=== PATIENT | female | born 1995 | race Caucasian/White ===

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

== ENCOUNTER 2017-04-19 20:55 | Emergency (ER) | payer OTHER ==
[~2017-04-19] VITALS: Ht 149.9 cm; Wt 65.5 kg
[2017-04-19 20:55] VITALS: BP 130/60
[~2017-04-19 20:55] MED LIST changes: +IBUP-1022 PO; +REGL10TA6 PO
== END 2017-04-19 22:57 | disposition left against medical advice (07) ==
LOC: M ED 20:55
DX: R11.2 Nausea with vomiting, unspecified (principal); Z53.21 Procedure and treatment not carried out due to patient leaving prior to being seen by health care provider

== ENCOUNTER 2017-05-13 14:57 | Emergency (ER) | payer OTHER ==
[~2017-05-13] VITALS: Ht 149.9 cm; Wt 62.7 kg
[2017-05-13 15:00] VITALS: BP 159/74
[2017-05-13] MEDS ORDERED: ZOFR4TAB3 PO (15:17)
== END 2017-05-13 17:01 | disposition left against medical advice (07) ==
LOC: M ED 14:57
DX: R10.9 Unspecified abdominal pain (principal); Z53.21 Procedure and treatment not carried out due to patient leaving prior to being seen by health care provider

== ENCOUNTER → 2017-05-16 | Outpatient (REF) | payer OTHER | LOC: M LAB REF 13:22 | PROVIDERS: ATTEND Physician Assistant | DX: R30.0 Dysuria (principal) ==

== ENCOUNTER → 2017-07-04 | Outpatient (CLI) | payer OTHER ==
--- NOTE | 2017-07-05 08:38 | REP ---
COMPLETE OBSTETRICAL ULTRASOUND: CLINICAL: Anatomical evaluation. FINDINGS: Ultrasound examination demonstrates a single live intrauterine in transverse lie with head towards the maternal right side. motion was identified by technologist. Placenta is noted anteriorly and grade 0 without evidence for placenta previa or abruption. Amniotic fluid volume is within normal limits. Cervix measures 3 cm in length and appears closed. Gestational age by LMP and current measurements 20 weeks 0 days with estimated date of delivery 11/21/2017. FHR 128 beats per minute. BPD 4.7 cm = 20 weeks 1 day HC 17.6 cm = 20 weeks 1 day AC 14.1 cm = 19 weeks 3 days FL 3.1 cm = 19 weeks 4 days HL 3.1 cm = 20 weeks 2 days HC/AC ratio 1.25. Estimated weight 303 grams (34th percentile). Anatomical assessment demonstrates normal cranium, choroid plexus, cavum, cerebellum/posterior fossa, lungs, four chamber heart/ventricular outflow tracts, diaphragm, stomach, cord insertion/three vessel cord, kidneys/bladder, spine and extremities. Limited evaluation of the facial features noted. IMPRESSION: Single live intrauterine demonstrating appropriate interval growth. Limited evaluation of the facial features noted. Remainder of the anatomical assessment is complete and normal. Signed by Joseph Nunez MD 07/09/2017 11:35 P
== END ==
LOC: M RAD 10:39
PROVIDERS: ATTEND Specialist
DX: Z34.82 Encounter for supervision of other normal pregnancy, second trimester (principal); Z36.89 Encounter for other specified antenatal screening

== ENCOUNTER → 2017-08-29 | Outpatient (CLI) | payer OTHER | LOC: M RAD 11:57 | DX: Z36.2 Encounter for other antenatal screening follow-up (principal) | CPT/HCPCS: 76816 ==

== ENCOUNTER → 2017-09-11 | Outpatient (CLI) | payer OTHER ==
[2017-09-14 00:07] LABS: LEAD BLOOD ADULT <1 ug/dL (0-19)
== END ==
LOC: M LAB 15:28
DX: Z36.89 Encounter for other specified antenatal screening (principal); Z3A.00 Weeks of gestation of pregnancy not specified
CPT/HCPCS: 83655

== ENCOUNTER 2017-10-04 20:13 | Outpatient (CLI) | payer OTHER ==
[2017-10-04] MEDS ORDERED: LR 1,000 ML IV (20:46)
[2017-10-04] MEDS: LACTATED RINGER'S 1000 ML IV (20:46)
[2017-10-04] MEDS: PROMETHAZINE INJ 25 MG/ML VIAL (J2550) IV (21:25)
[2017-10-04] MEDS: METOCLOPRAMIDE INJ 10MG/2ML VIAL (J2765) IV (23:00)
[2017-10-05] MEDS: CALCIUM CARBONATE 500 MG CHEW U/D PO (00:32)
[2017-10-05] MEDS: PANTOPRAZOLE 40MG INJ (PROTONIX) (C9113) IV (05:15)
== END 2017-10-05 09:55 | disposition home or self-care (01) ==
LOC: M LDO 20:13
DX: O99.89 Other specified diseases and conditions complicating pregnancy, childbirth and the puerperium (principal); Z3A.33 33 weeks gestation of pregnancy; O99.613 Diseases of the digestive system complicating pregnancy, third trimester; K52.9 Noninfective gastroenteritis and colitis, unspecified
CPT/HCPCS: C9113

== ENCOUNTER → 2017-10-20 | Outpatient (CLI) | payer OTHER ==
[2017-10-20 17:18] LABS: BASO % 0.1 % (0.0-1.0); EOS % 0.4 % (0.0-3.0); HEMATOCRIT 28.8 % (36.0-47.0); HEMOGLOBIN 8.9 g/dl (12.0-16.0); IMMATURE GRANULOCYTE % 0.3 % (0-3.0); LYMPH # 2.1 10^3/uL (1.5-6.5); LYMPH % 20.1 % (24.0-44.0); MEAN CORPUSCULAR HEMOGLOBIN 25.2 pg (27.0-33.0); MEAN CORPUSCULAR HGB CONC 30.9 g/dl (32.0-36.5); MEAN CORPUSCULAR VOLUME 81.6 fl (80.0-96.0); MONO # 0.6 10^3/uL (0.0-0.8); MONO % 5.2 % (0.0-5.0); NEUTROPHILS # 7.9 10^3/uL (1.8-7.7); NEUTROPHILS % 73.9 % (36.0-66.0); PLATELET COUNT, AUTOMATED 276 10^3/uL (150-450); RED BLOOD COUNT 3.53 10^6/uL (4.00-5.40); RED CELL DISTRIBUTION WIDTH 14.6 % (11.5-14.5); WHITE BLOOD COUNT 10.7 10^3/uL (4.0-10.0)
[2017-10-20 19:17] LABS: CHLAMYDIA DNA AMPLIFICATION NEGATIVE (NEGATIVE); GC DNA AMPLIFICATION NEGATIVE (NEGATIVE)
[2017-10-20 20:39] LABS: GLUCOSE CHALLENGE TEST 1 HOUR 126 MG/DL (LESS THAN 140)
[2017-10-23 10:24] LABS: RUBELLA IgG QUALITATIVE IMMUNE (IMMUNE)
[2017-10-23 10:30] LABS: HBsAg Prenatal NEGATIVE (NEGATIVE)
[2017-10-23 10:53] LABS: HIV 1&2 SCREEN CENTAUR NEGATIVE (NEGATIVE)
[2017-10-23 10:53] LABS: HEPATITIS C VIRUS ABY INDEX < 0.0 INDEX (<0.8)
== END ==
LOC: M SMT 13:07
DX: Z34.83 Encounter for supervision of other normal pregnancy, third trimester (principal); Z36.89 Encounter for other specified antenatal screening
CPT/HCPCS: 82950

== ENCOUNTER → 2017-10-20 | Outpatient (REF) | payer OTHER | LOC: M LAB REF 17:13 | DX: Z34.83 Encounter for supervision of other normal pregnancy, third trimester (principal) ==

== ENCOUNTER 2017-11-12 21:08 | Inpatient (IN) | payer OTHER ==
[2017-11-12] MEDS: LACTATED RINGER'S 1000 ML IV (22:56)
[2017-11-12 23:06] LABS: HEMATOCRIT 29.8 % (36.0-47.0); HEMOGLOBIN 9.3 g/dl (12.0-15.5); MEAN CORPUSCULAR HEMOGLOBIN 24.3 pg (27.0-33.0); MEAN CORPUSCULAR HGB CONC 31.2 g/dl (32.0-36.5); PLATELET COUNT, AUTOMATED 236 10^3/uL (150-450); RED BLOOD COUNT 3.82 10^6/uL (4.00-5.40); RED CELL DISTRIBUTION WIDTH 15.6 % (11.5-14.5); WHITE BLOOD COUNT 15.6 10^3/uL (4.0-10.0)
[2017-11-13] MEDS: LR 1,000 ML IV (08:46)
[2017-11-13] MEDS: PRENATAL VITAMINS CHEWABLE TABLET PO (09:00)
[2017-11-13] MEDS ORDERED: OXYTOCIN 30 UNITS IN 0.9% NaCl 500ML IV BAG (J2590) As Ordered (09:13)
[2017-11-13] MEDS: METHYLERGONOVINE MALEATE 0.2 MG/ML VIAL (J2210) IM (10:07)
[2017-11-13 10:27] LABS: CORD GAS ABE V -3.9; CORD GAS O2 SAT V 74.4 %; CORD GAS PCO2 V 42.8 mmHg; CORD GAS PH V 7.329 UNITS; CORD GAS SBC V 20.7 MEQ/L; CORD GAS TCO2 V 23.3 MEQ/L
[2017-11-13 10:28] LABS: CORD GAS ABE A -2.8; CORD GAS HCO3 A 24.9 MEQ/L; CORD GAS O2 SAT A 48.2 %; CORD GAS PCO2 A 55.4 mmHg; CORD GAS PH A 7.271 UNITS; CORD GAS PO2 A 21.8 mmHg; CORD GAS TCO2 A 26.6 MEQ/L
[2017-11-13] MEDS ORDERED: METHYLERGONOVINE MALEATE 0.2 MG TAB PO (10:45)
[2017-11-13] MEDS ORDERED: MEASLES,MUMPS,RUBELLA VACCINE INJ (MMR-II) (90707) SC (10:45)
[2017-11-13] MEDS ORDERED: RHOGAM 300 MCG (1500 IU) INJ (J2790) IM (10:45)
[2017-11-13] MEDS ORDERED: DIBUCAINE 1% OINTMENT 30GM TOP (10:45)
[2017-11-13] MEDS ORDERED: ANUSOL HC CREAM 30GM TOP (10:45)
[2017-11-13] MEDS ORDERED: DOCUSATE SODIUM 100 MG CAP PO (10:45)
[2017-11-13] MEDS: IBUPROFEN 600 MG TAB PO ×3 (11:06→22:52)
[2017-11-13] MEDS: LIDOCAINE 1% MDV 20ML VIAL INFIL (11:16)
[2017-11-13] MEDS: OXYTOCIN DRIP 30 UNITS in APPROPRIATE DILUENT 1 EA IV (11:18)
[2017-11-13] MEDS: BUTORPHANOL 2 MG/ML INJ (J0595) IV (11:19)
[2017-11-13] MEDS: PROMETHAZINE INJ 25 MG/ML VIAL (J2550) IV (11:19)
[2017-11-13] MEDS: ACETAMINOPHEN 500 MG TAB PO (16:51)
[2017-11-14] MEDS: IBUPROFEN 600 MG TAB PO ×2 (06:17→15:33)
[2017-11-14] MEDS: PRENATAL VITAMINS CHEWABLE TABLET PO (11:06)
[2017-11-14] MEDS: ACETAMINOPHEN 500 MG TAB PO ×2 (11:07→17:49)
[2017-11-15] MEDS: IBUPROFEN 600 MG TAB PO ×2 (00:26→08:03)
[2017-11-15] MEDS: PRENATAL VITAMINS CHEWABLE TABLET PO (08:03)
[2017-11-15] MEDS ORDERED: SERTRALINE HCL 50 MG TAB PO (08:30)
== END 2017-11-15 10:30 | disposition home or self-care (01) | DRG 560 ==
LOC: M LDO 21:08 → M LDI 23:00 → M OBS 11-13 12:05
PROVIDERS: Obstetrics & Gynecology
PROC: 10E0XZZ Delivery of Products of Conception, External Approach (ICD-10-PCS; principal; 2017-11-13)
PROC: 0KQM0ZZ Repair Perineum Muscle, Open Approach (ICD-10-PCS; 2017-11-13)
PROC: 10907ZC Drainage of Amniotic Fluid, Therapeutic from Products of Conception, Via Natural or Artificial Opening (ICD-10-PCS; 2017-11-13)
DX: O34.211 Maternal care for low transverse scar from previous cesarean delivery (principal); O70.1 Second degree perineal laceration during delivery; Z3A.38 38 weeks gestation of pregnancy; Z37.0 Single live birth

== ENCOUNTER → 2018-12-03 | Outpatient (CLI) | payer OTHER ==
[~2018-12-03] MED LIST changes: +COLA100C5 PO; +PRENTAB55 PO; +PROM12.56 PO; +RANI15TA PO; +TYLE325T5 PO; -ZOFR20TA PO; +ZOFR4TAB14 PO; +ZOFR4TAB16 PO; -ZOFR4TAB3 PO; +ZOLO50TA PO
--- NOTE | 2018-12-04 04:19 | REP ---
Clinical: Anatomical evaluation. Comparison: None . Findings: Examination demonstrates a single live intrauterine in cephalic presentation. motion is identified by technologist. Placenta is noted anterior and grade zero without evidence for placenta previa or abruption. Amniotic fluid volume is normal. Cervix measures 4.0 cm in length and appears closed. No evidence for nuchal cord. Gestational age by current measurements 18 weeks 4 day with MIRI 05/02/2019 . FHR equals 127 beats per minute. BPD 4.2 cm 18 weeks 6 days HC 15.1 cm 18 weeks 1 day AC 12.5 cm 18 weeks 1 day FL 2.7 cm 18 weeks 2 days HL 2.7 cm 18 weeks 5 days HC/AC ratio 1.20 Estimated weight 230 grams ( 34th percentile). Anatomical assessment demonstrates normal structures including cranium, choroid plexus, cavum, cerebellum/posterior fossa, facial features, lungs, four-chamber heart/ventricular outflow tracts, diaphragm, stomach, cord insertion/three-vessel cord, kidneys/bladder, and extremities. Impression: 1. Single live intrauterine in cephalic presentation demonstrating appropriate estimated weight. 2. Limited evaluation of the spine. Remainder of the anatomical assessment is complete and normal. Electronically Signed by Joesph Nunez MD 12/04/2018 04:11 A
== END ==
LOC: M RAD 09:36
PROVIDERS: ATTEND Specialist
DX: Z34.82 Encounter for supervision of other normal pregnancy, second trimester (principal); Z36.89 Encounter for other specified antenatal screening; Z3A.18 18 weeks gestation of pregnancy

== ENCOUNTER → 2018-12-06 | Outpatient (REF) | payer OTHER ==
[2018-12-06 18:29] LABS: APPEARANCE, URINE CLOUDY (CLEAR); BACTERIA, URINE AUTO 2+ (NEGATIVE); BILIRUBIN, URINE AUTO NEGATIVE (NEGATIVE); BLOOD, URINE BLOOD 1+ (NEGATIVE); COLOR, URINE AMBER (YELLOW); GLUCOSE, URINE (UA) AUTO NEGATIVE (NEGATIVE); KETONE, URINE AUTO NEGATIVE (NEGATIVE); LEUKOCYTE ESTERASE, URINE AUTO 3+ (NEGATIVE); MUCUS, URINE LARGE (NEGATIVE); NITRITE, URINE AUTO POSITIVE (NEGATIVE); PROTEIN, URINE AUTO NEGATIVE (NEGATIVE); RBC, URINE AUTO 19 /HPF (0-3); SPECIFIC GRAVITY URINE AUTO 1.023 (1.002-1.035); SQUAMOUS EPITHELIAL CELL UR AU 6 /HPF (0-6); UROBILINOGEN, URINE AUTO 0.2 mg/dL (0.0-2.0); WBC, URINE AUTO TNTC /HPF (0-3)
== END ==
LOC: M LAB REF 17:14
PROVIDERS: ATTEND Physician Assistant
DX: N39.0 Urinary tract infection, site not specified (principal)

== ENCOUNTER → 2019-03-14 | Outpatient (REF) | payer OTHER ==
[2019-03-14 20:17] LABS: CHLAMYDIA DNA AMPLIFICATION NEGATIVE (NEGATIVE); GC DNA AMPLIFICATION NEGATIVE (NEGATIVE)
== END ==
LOC: M LAB REF 17:27
PROVIDERS: ATTEND Obstetrics & Gynecology
DX: O34.219 Maternal care for unspecified type scar from previous cesarean delivery (principal); Z3A.00 Weeks of gestation of pregnancy not specified

== ENCOUNTER 2019-03-20 00:28 | Emergency (ER) | payer OTHER ==
[~2019-03-20] VITALS: Ht 149.9 cm; Wt 72.3 kg
[2019-03-20] MEDS ORDERED: METOCLOPRAMIDE INJ 10MG/2ML VIAL (J2765) IV ONE (02:00)
[2019-03-20 03:07] VITALS: BP 96/53
== END 2019-03-20 03:08 | disposition home or self-care (01) ==
LOC: M ED 00:28
DX: O99.353 Diseases of the nervous system complicating pregnancy, third trimester (principal); O99.343 Other mental disorders complicating pregnancy, third trimester; Z79.899 Other long term (current) drug therapy; J30.2 Other seasonal allergic rhinitis
CPT/HCPCS: 96374; 99284; J2765

== ENCOUNTER 2019-04-04 17:45 | Inpatient (IN) | payer OTHER ==
[~2019-04-04] VITALS: Ht 149.9 cm; Wt 67.6 kg
[2019-04-04 18:17] VITALS: BP 99/46
[2019-04-04] MEDS ORDERED: PROMETHAZINE INJ 25 MG/ML VIAL (J2550) IV ONE (18:45)
[2019-04-04] MEDS: LR 1,000 ML IV SCH (18:45)
[2019-04-04] MEDS ORDERED: LACTATED RINGER'S 1000 ML IV ONE (18:45)
[2019-04-04 18:57] VITALS: BP 117/57
[2019-04-04 19:08] LABS: BASO % 0.3 % (0.0-1.0); EOS % 0.1 % (0.0-3.0); HEMATOCRIT 21.4 % (36.0-47.0); LYMPH # 1.5 10^3/uL (1.5-5.0); LYMPH % 19.3 % (24.0-44.0); MEAN CORPUSCULAR HEMOGLOBIN 22.7 pg (27.0-33.0); MEAN CORPUSCULAR HGB CONC 29.4 g/dl (32.0-36.5); MEAN CORPUSCULAR VOLUME 77.3 fl (80.0-96.0); MONO # 0.4 10^3/uL (0.0-0.8); MONO % 5.5 % (0.0-5.0); NEUTROPHILS # 5.7 10^3/uL (1.5-8.5); NEUTROPHILS % 74.4 % (36.0-66.0); PLATELET COUNT, AUTOMATED 174 10^3/uL (150-450); RED BLOOD COUNT 2.77 10^6/uL (4.00-5.40); WHITE BLOOD COUNT 7.7 10^3/uL (4.0-10.0)
[2019-04-04 19:11] LABS: HEMOGLOBIN 6.3 g/dl (12.0-15.5)
[2019-04-04 19:47] LABS: APPEARANCE, URINE HAZY (CLEAR); BACTERIA, URINE AUTO 1+ (NEGATIVE); BILIRUBIN, URINE AUTO NEGATIVE (NEGATIVE); BLOOD, URINE BLOOD NEGATIVE (NEGATIVE); COLOR, URINE YELLOW (YELLOW); GLUCOSE, URINE (UA) AUTO NEGATIVE (NEGATIVE); KETONE, URINE AUTO 1+ mg/dL (NEGATIVE); LEUKOCYTE ESTERASE, URINE AUTO 2+ (NEGATIVE); MUCUS, URINE SMALL (NEGATIVE); NITRITE, URINE AUTO NEGATIVE (NEGATIVE); PROTEIN, URINE AUTO NEGATIVE (NEGATIVE); RBC, URINE AUTO 1 /HPF (0-3); SPECIFIC GRAVITY URINE AUTO 1.021 (1.002-1.035); SQUAMOUS EPITHELIAL CELL UR AU 11 /HPF (0-6); WBC, URINE AUTO 9 /HPF (0-3)
[2019-04-04 19:54] LABS: AMPHETAMINES URINE REFLEX NEGATIVE (NEGATIVE); BARBITURATES URINE REFLEX NEGATIVE (NEGATIVE); BENZODIAZEPINES URINE REFLEX NEGATIVE (NEGATIVE); CANNABINOIDS URINE REFLEX NEGATIVE (NEGATIVE); COCAINE METABOLITE URINE REFLE NEGATIVE (NEGATIVE); METHADONE URINE REFLEX NEGATIVE (NEGATIVE); OPIATES URINE REFLEX NEGATIVE (NEGATIVE); PHENCYCLIDINE URINE REFLEX NEGATIVE (NEGATIVE)
[2019-04-04] MEDS ORDERED: BETAMETHASONE SOLUSPAN 6MG/ML INJ 5ML (J0702) IM SCH (20:00)
--- NOTE | 2019-04-04 20:23 | IPN ---
DATE: 04/04/2019 Brittany is a 23-year-old 3, para 2-0-0-2 at 35-2/7 weeks gestation, EDC of 05/07/2019 based on last menstrual period and confirmed by first trimester ultrasound. She presents to labor and delivery today with a complaint of dizziness, headache, weakness, fatigue, blurred vision. She denies vaginal bleeding, leakage of fluid and contractions. She does report positive movement. She was seen in the office today for a routine visit. care was initiated in the first trimester. course complicated by poor and inadequate care. She has no showed several appointments to her office. She has yet to have had her first labs drawn. She has not completed the gestational diabetic screening as ordered. She did however undergo her routine anatomy scan which returned normal results. OBSTETRICAL HISTORY June 2016, 38 weeks gestation, 6 pounds 5 ounces male section due to breech presentation. October 2017, 39 weeks gestation, 7 pound female vaginal after section. LABS None to review. PAST MEDICAL HISTORY: Seasonal allergies. SURGERIES section. FAMILY HISTORY Hypertension, depression, autism. SOCIAL HISTORY The patient is single, however, she does have a supportive partner that is the father of her other two children. She is a nonsmoker. She denies alcohol and drug use. No history of any sexually transmitted infections. She denies history of abuse, physical, sexual and emotional. ALLERGIES: No known drug allergies. CURRENT MEDICATIONS Zofran as needed (p.r.n.), Fioricet for headaches, Zantac for reflux and heartburn and vitamin. OBJECTIVE Temperature 98.3, pulse 78, respirations 60, BP is 117/57. She is ill appearing. She is pale and listless. heart rate upon presentation is 110 with moderate variability, positive accelerations, no decelerations. There is an occasional contraction noted. Her sterile vaginal exam is deferred. Her CBC ordered stat upon arrival returned a white count of 7.7, hemoglobin 6.3, hematocrit 21.4, platelets 174. All other labs are pending at this time. ASSESSMENT Intrauterine at 35-2/7 weeks. a heart rate is category one low baseline, severe anemia. PLAN Observation status on labor and delivery. IV fluid bolus. Regular diet. Antiemetics as needed. Her labs have been ordered. Per consult with Dr. Ancelmo Hoyt betamethasone 12 mg IM today. Repeat in 24 hours. Two units of packed RBCs. The patient has been consented for blood transfusion, growth ultrasound. Continuous monitoring overnight. Will observe until she is likely beta complete 24 hours from now.
[2019-04-04 21:00] VITALS: BP 127/58
[2019-04-04] MEDS ORDERED: ACETAMINOPHEN 500 MG TAB PO ONE (21:00)
[2019-04-04] MEDS ORDERED: diphenhydrAMINE 50 MG CAP PO ONE (21:00)
--- NOTE | 2019-04-04 22:01 | REPVR ---
EXAM: US After First Trimester, Transabdominal EXAM DATE/TIME: 04/04/2019 9:08 PM CLINICAL HISTORY: 23 years old, female; Abnormal findings; Abnormal lab test; Other: Anemia; ; Additional info: Severe anemia, growth TECHNIQUE: Imaging protocol: Real-time transabdominal obstetrical ultrasound of the maternal pelvis and a second or third trimester with image documentation. COMPARISON: US OBS SINGEL GEST 12/03/2018 9:51 AM FINDINGS: GESTATION: Gestation: Single intrauterine fetus. The cranial structures and nose/lips are normal. Heart rate: heartbeat 139 beats per minute. Presentation: Cephalic presentation. Placenta: Anterior placenta without previa or abruption. Amniotic fluid: Normal ALMA of 16.7 cm. Heart: four-chamber heart is normal. Abdomen: The RVOT, LVOT, diaphragm, stomach, kidneys and bladder are normal. Umbilical cord and insertion: The cord drapes over the neck. Nuchal cord is not ruled out. Cord insertion is normal. Spine: The spine is normal. Extremities: The visualized extremities are normal. BIOMETRY: Estimated gestational age: The composite gestational age by ultrasound is 35 weeks 4 days. Estimated due date: The EDC is 05/05/2019. There has been adequate growth since 12/03/2018 Estimated weight: The estimated weight is 2646 grams and is 49th percentile. Biparietal diameter: The BPD measures 8.9 cm suggesting an age of 36 weeks 0 days. Head circumference: The head circumference measures 31.9 cm suggesting an age of 36 weeks 0 days. Abdominal circumference: The abdominal circumference measures 31.4 cm suggesting an age of 35 weeks 3 days. Femur length: The femur length measures 6.8 cm suggesting an age of 34 weeks 5 days. MATERNAL: Uterus: Unremarkable. Cervix: Closed cervix measuring 3.7 cm. Right adnexa: Large right adnexal venous varicosities with question of some nonoccluding thrombus of uncertain significance. IMPRESSION: 1. Single live intrauterine fetus in cephalic presentation with a composite age of 35 weeks 4 days. The EDC is 05/05/2019 with adequate growth since 12/03/2018. 2. The cord drapes over the neck. Nuchal cord is not ruled out. 3. Right adnexal venous varicosities with question of some nonoccluding thrombus of uncertain significance. Electronically signed by: Jj Dao On 04/04/2019 22:00:44 PM
[2019-04-04 22:32] VITALS: BP 126/56
[2019-04-04 22:52] VITALS: BP 115/54
[2019-04-04] MEDS ORDERED: FAMOTIDINE 20 MG TAB PO ONE (23:45)
[2019-04-04 23:56] VITALS: BP 105/54
[2019-04-05] VITALS (11 sets, daily range): BP systolic 101–134; BP diastolic 48–64
[2019-04-05] MEDS: LR 1,000 ML IV SCH ×3 (06:24→15:21)
[2019-04-05] MEDS: ACETAMINOPHEN 500 MG TAB PO PRN (06:50)
[2019-04-05] MEDS ORDERED: DOCUSATE SODIUM 100 MG CAP PO PRN (07:00)
[2019-04-05 07:02] LABS: HEMATOCRIT 29.3 % (36.0-47.0); MEAN CORPUSCULAR HEMOGLOBIN 24.4 pg (27.0-33.0); MEAN CORPUSCULAR HGB CONC 30.4 g/dl (32.0-36.5); MEAN CORPUSCULAR VOLUME 80.3 fl (80.0-96.0); PLATELET COUNT, AUTOMATED 179 10^3/uL (150-450); RED BLOOD COUNT 3.65 10^6/uL (4.00-5.40); WHITE BLOOD COUNT 9.5 10^3/uL (4.0-10.0)
[2019-04-05 07:07] LABS: HEMOGLOBIN 8.9 g/dl (12.0-15.5)
--- NOTE | 2019-04-05 10:25 | REP ---
BIOPHYSICAL PROFILE OB ULTRASOUND: Real-time sonographic evaluation of the gravid uterus performed. There is a single living intrauterine gestation with an estimated gestational age reportedly 36 weeks 1 day, EDC 05/02/2019. heart rate 119 beats per minute. Amniotic fluid is within normal limits, ALMA 9.5 within normal range of 7.7 to 24.8. Biophysical profile score is 4/8 with 0 points for movement and 0 points for tone despite multiple position changes and pressure stimulation. S/D ratio 3.28 is above normal range of 1.95 to 2.95. RI 0.70 is within normal range of 0.59 to 0.75. position is vertex. Placenta is anterior and grade 2 with no previa or abruption. Electronically Signed by Chance Ramirez MD 04/05/2019 10:58 A
--- NOTE | 2019-04-05 10:32 | HPEPDOC ---
Obstetrical History & Physical General Date of Admission Apr 05, 2019 at 10:03 History of Present Illness Chief Complaint: Induction of labor Information Provided By: Patient Age: 23 : 3 Term: 2 Pre-term: 0 Abortions: 0 Livin Care Care: Limited Care (noncompliance with care) Dating Final EDC: May 07, 2019 Final EDC by: LMP EGA at Admission: 35 (+3) Antepartum Course Height (inches): 59 Pre- weight (lbs.): 159 (at first visit) Admission Weight (lbs.): 149 Past Medical History Past Obstetrical History #1: Past Obstetrical History: Primgravida (2016) Type of Delivery: Ceserean section (breech) Sex of Infant: Male (6#5) Complications: Yes (breech) Past Obstetrical History #2: Past Obstetrical History: Multigravida (2017) Type of Delivery: Spontaneous Vaginal Del. () Sex of Infant: Female (7#) Complications: No [employer] ARCHITECT History: No pertinent history Past Medical History Surgical History: section Family History Significant Family History: Hypertension Social History Marital Status: Single Family situation: Spouse/partner home Psychosocial History: No pertinent psych hx * Smoker: non-smoker Alcohol: Denies Drugs: denies Abuse Violence Screening Have you been hit/kicked/slapp: No Have you been sexually assault: No Imunizations Tdap status: declined Allergies Coded Allergies: SEASONAL ALLERGIES (Verified Allergy, Unknown, 03/20/19) Medications Scheduled Ranitidine Hcl (Ranitidine HCl) 150 Mg Tab, 1 TAB PO BID Scheduled PRN Ondansetron (Zofran Odt) 4 Mg Tab, 4 MG PO Q4H PRN for NAUSEA Physical Examination Physical Examination GENERAL: Alert and oriented times three. BREAST: . ABDOMEN: Gravid and non-tender to touch. FETUS: Is vertex (VTX) by sterile vaginal examination (SVE), fetus is vertex (VT X) by Jordon. HEART RATE: Regular rate and rhythm. LUNGS: Clear to auscultation (CTA). EXTREMITIES: No edema. No clonus. Deep tendon reflexes (DTRs) + 2. Vital Signs/I&O Vital Signs Date Time Temp Pulse Resp B/P (MAP) Pulse Ox O2 Delivery O2 Flow Rate FiO2 04/05/19 06:24 98.0 70 16 113/52 (72) 04/05/19 03:40 16 I&O- Last 24 Hours up to 6 AM 04/05/19 06:00 Intake Total 1706 ml Balance 1706 ml Laboratory Data 24H LABS Laboratory Tests 2 04/04/19 18:54: Immature Granulocyte % (Auto) 0.4, White Blood Count 7.7, Red Blood Count 2.77L, Hemoglobin 6.3*L, Hematocrit 21.4L, Mean Corpuscular Volume 77.3L, Mean Corpuscular Hemoglobin 22.7L, Mean Corpuscular Hemoglobin Concent 29.4L, Red Cell Distribution Width 17.0H, Platelet Count 174, Neutrophils (%) (Auto) 74.4H, Lymphocytes (%) (Auto) 19.3L, Monocytes (%) (Auto) 5.5H, Eosinophils (%) (Auto) 0.1, Basophils (%) (Auto) 0.3, Neutrophils # (Auto) 5.7, Lymphocytes # (Auto) 1.5, Monocytes # (Auto) 0.4, Eosinophils # (Auto) 0.0, Basophils # (Auto) 0.0, Nucleated Red Blood Cells % (auto) 0.0 04/04/19 19:22: Urine Appearance HAZY, Urine Color YELLOW, Urine pH 7.0, Urine Specific Bill[place] 1.021, Urine Protein NEGATIVE, Urine Glucose (UA) NEGATIVE, Urine Ketones 1+H, Urine Urobilinogen 4.0H, Urine Bilirubin NEGATIVE, Urine Leukocyte Esterase 2+H, Urine Blood NEGATIVE, Urine Nitrite NEGATIVE, Urine WBC (Auto) 9H, Urine RBC (Auto) 1, Urine Hyaline Casts (Auto) 0, Urine Bacteria (Auto) 1+H, Urine Squamous Epithelial Cells 11, Urine Mucus (Auto) SMALL, Urine Sperm (Auto) , Ur ine Amphetamines Screen NEGATIVE, Urine Benzodiazepines Screen NEGATIVE, Urine Opiates Screen NEGATIVE, Urine Methadone Screen NEGATIVE, Urine Barbiturates Screen NEGATIVE, Urine Phencyclidine Screen NEGATIVE, Urine Cocaine Metabolite Screen NEGATIVE, Urine Cannabinoids Screen NEGATIVE 04/05/19 06:51: Nucleated Red Blood Cells % (auto) 0.0 CBC/BMP Laboratory Tests 04/04/19 18:54 Red Blood Count 2.77 L, Mean Corpuscular Volume 77.3 L, Mean Corpuscular Hemog lobin 22.7 L, Mean Corpuscular Hemoglobin Concent 29.4 L, Red Cell Distribution Width 17.0 H, Neutrophils (%) (Auto) 74.4 H, Lymphocytes (%) (Auto) 19.3 L, Monocytes (%) (Auto) 5.5 H, Eosinophils (%) (Auto) 0.1, Basophils (%) (Auto) 0.3, Neutrophils # (Auto) 5.7, Lymphocytes # (Auto) 1.5, Monocytes # (Auto) 0.4, Eosinophils # (Auto) 0.0, Basophils # (Auto) 0.0 04/05/19 06:51 Red Blood Count 3.65 L, Mean Corpuscular Volume 80.3, Mean Corpuscular Hemoglobin 24.4 L, Mean Corpuscular Hemoglobin Concent 30.4 L, Red Cell Distribution Width 17.4 H Microbiology Microbiology 04/05/19 Group B Streptococcus Screen (MAIN), Received Pending 04/04/19 Urine Culture, Received Pending Pertinent Laboratoy Data RBC Antibody Screen: Positive (remainder of PNP pending) Group B Streptococcus: Unknown Anatomy Ultrasound Ultrasound Date: December 03, 2018 Placenta Location: Anterior Normal Anatomy: Yes Placenta Previa: No Estimated Weight (grams): 230 (34%) Other Ultrasounds 09/12/17 dating 6w0d 04/04/19 growth cephalic, 2646gm, 49% 04/05/19 BPP breathing 2, movement 0, tone 0, AFV 2 = 4/8. ALMA 9.5, S/D ratio 3.28 Steroid Therapy Steroid Therapy: Yes (in process) Date #1: Apr 04, 2019 Vaginal Examination Dilation: 3 cm Effacement: 50% Station: -2 Cervical Consistency: Medium Cervical Position: Middle Presentation: Cephalic presentation Assessment Heart Rate (FHR): 130 Variability: Decreased Accelerations: Other (rare) Decelerations: None Tocometer Contractions: No Assessment/Plan Assessment Brittany is a 23-year-old (G)3 para (P)2-0-0-2 at 35+3 weeks by 6-week ultrasound. Presents to Labor and Delivery (L&D) for blood transfusion for severe anemia. complicated by noncompliance with care. panel drawn yesterday showing H/H 6.3/21.4. She received 2 units PRBC. F/U H/H 8.9/29.3. Received betamethasone #1 / @ 8pm. BPP 04/05/19 4/8, no points for movement or tone. Admitted for IOL per consult Dr Vizcarra. Plan Admit and orient per consult Dr Vizcarra. Wheel Fitter and consent. Diet: Clear liquids. Group B Streptococcus (GBS) unknown, prophylaxis ordered. Labs and intravenous (IV) per unit protocol. Counseled on Pitocin and induction of labor (IOL). Counseled on possible intolerance of labor. Lactated Ringers (LR): Bolus 500 mL, then at 125 mL/hr. Plans to labor ad carley. Anticipate successful vaginal delivery after . C-S as appropriate. Alysia Herman CNM Apr 05, 2019 10:14
[2019-04-05] MEDS: FERROUS GLUCONATE 324 MG TAB PO SCH ×3 (11:21→21:00)
[2019-04-05] MEDS: FAMOTIDINE 20 MG TAB PO SCH ×2 (11:21→21:21)
[2019-04-05] MEDS ORDERED: LR 1,000 ML IV SCH ×2 (11:31→13:15)
[2019-04-05] MEDS ORDERED: LACTATED RINGER'S 1000 ML IV STA (11:31)
[2019-04-05] MEDS ORDERED: ONDANSETRON 4MG/2ML VIAL (J2405) IV PRN (12:15)
[2019-04-05 12:26] LABS: HIV 1&2 SCREEN CENTAUR NEGATIVE (NEGATIVE); RUBELLA IgG QUALITATIVE IMMUNE (IMMUNE)
[2019-04-05] MEDS ORDERED: BETAMETHASONE SOLUSPAN 6MG/ML INJ 5ML (J0702) IM SCH (13:30)
[2019-04-05 17:38] LABS: HEMATOCRIT 28.9 % (36.0-47.0); HEMOGLOBIN 8.8 g/dl (12.0-15.5); MEAN CORPUSCULAR HEMOGLOBIN 24.3 pg (27.0-33.0); MEAN CORPUSCULAR HGB CONC 30.4 g/dl (32.0-36.5); MEAN CORPUSCULAR VOLUME 79.8 fl (80.0-96.0); PLATELET COUNT, AUTOMATED 169 10^3/uL (150-450); RED BLOOD COUNT 3.62 10^6/uL (4.00-5.40); WHITE BLOOD COUNT 13.1 10^3/uL (4.0-10.0)
[2019-04-05] MEDS ORDERED: OXYTOCIN DRIP 30 UNITS in IV 1 EA IV SCH (18:00)
[2019-04-05] MEDS ORDERED: PENICILLIN G POTASSIUM IV 2.5 MU in IV 1 EA IV SCH (20:04)
[2019-04-05] MEDS ORDERED: PENICILLIN G POTASSIUM IV 5 MU in D5W MINI-BAG PLUS 100 ML IV STA (20:04)
--- NOTE | 2019-04-05 23:44 | IPNPDOC ---
Text Note Date of Service The patient was seen on 04/05/19. NOTE Progress Pitocin @ 12mu UC 2-3 minutes apart x 45-60 seconds, mild FH 120, Cat I SVE 3-4/80/-2, thinning Considering epidural VS,Fishbone, I+O VS, Fishbone, I+O Laboratory Tests 04/05/19 06:51 Red Blood Count 3.65 L, Mean Corpuscular Volume 80.3, Mean Corpuscular Hemoglobin 24.4 L, Mean Corpuscular Hemoglobin Concent 30.4 L, Red Cell Distribution Width 17.4 H 04/05/19 17:20 Red Blood Count 3.62 L, Mean Corpuscular Volume 79.8 L, Mean Corpuscular Hemoglobin 24.3 L, Mean Corpuscular Hemoglobin Concent 30.4 L, Red Cell Distribution Width 17.4 H Vital Signs Date Time Temp Pulse Resp B/P (MAP) Pulse Ox O2 Delivery O2 Flow Rate FiO2 04/05/19 17:40 98.6 78 16 118/56 (76) 04/05/19 03:40 16 I&O- Last 24 Hours up to 6 AM 04/05/19 06:00 Intake Total 1706 ml Balance 1706 ml Alysia Herman CNM Apr 05, 2019 23:44
[2019-04-06] VITALS (7 sets, daily range): BP systolic 109–118; BP diastolic 50–67
[2019-04-06] MEDS ORDERED: PENICILLIN G POTASSIUM IV 2.5 MU in IV 1 EA IV SCH (00:30)
[2019-04-06] MEDS: LR 1,000 ML IV SCH (00:36)
[2019-04-06] MEDS ORDERED: BUTORPHANOL 2 MG/ML INJ (J0595) IV ONE (01:30)
[2019-04-06] MEDS ORDERED: PROMETHAZINE INJ 25 MG/ML VIAL (J2550) IV ONE (01:30)
[2019-04-06] MEDS ORDERED: FENTANYL 2MCG/ML ROPIVACAINE 0.2% IN 0.9% NACL 100ML IVBAG As Ordered ONE (02:28)
[2019-04-06] MEDS ORDERED: NALOXONE INJ 0.4 MG/1 ML VIAL (J2310) IV PRN (02:30)
[2019-04-06] MEDS ORDERED: ePHEDrine SULFATE 25 MG/5 ML(5MG/ML) SYRINGE IV PRN (02:30)
[2019-04-06] MEDS ORDERED: REFRIGERATOR IV KEYS XX PRN (02:30)
[2019-04-06] MEDS ORDERED: EPIDURAL COMMENT XX SCH (02:30)
[2019-04-06] MEDS ORDERED: ONDANSETRON 4MG/2ML VIAL (J2405) IV PRN (02:30)
[2019-04-06] MEDS ORDERED: EPIDURAL/PCA KEYS XX PRN (02:30)
[2019-04-06] MEDS ORDERED: FENTANYL/ROPIVACAINE/NACL BAG 100 ML EPIDURAL SCH (02:30)
[2019-04-06] MEDS ORDERED: diphenhydrAMINE INJ 50MG/ML VIAL (J1200) IV PRN (02:30)
[2019-04-06] MEDS: METHYLERGONOVINE MALEATE 0.2 MG TAB PO SCH ×4 (04:00→21:45)
[2019-04-06] MEDS ORDERED: ANUSOL HC CREAM 30GM TOP PRN (04:00)
[2019-04-06] MEDS ORDERED: IBUPROFEN 600 MG TAB PO PRN (04:00)
[2019-04-06] MEDS ORDERED: RHOGAM 300 MCG (1500 IU) INJ (J2790) IM SCH (04:00)
[2019-04-06] MEDS ORDERED: ACETAMINOPHEN TAB 650MG DOSE (2X325MG) PO PRN (04:00)
[2019-04-06] MEDS ORDERED: MOM 30ML SUSPENSION UDC PO PRN (04:00)
[2019-04-06] MEDS ORDERED: MEASLES,MUMPS,RUBELLA VACCINE INJ (MMR-II) (90707) SC SCH (04:00)
[2019-04-06] MEDS ORDERED: miSOPROStol 200 MCG TAB (S0191) PR ONE (04:00)
[2019-04-06] MEDS ORDERED: DIBUCAINE 1% OINTMENT 30GM TOP PRN (04:00)
[2019-04-06 05:02] LABS: CORD GAS ABE V -5.1; CORD GAS HCO3 V 21.3 MEQ/L; CORD GAS O2 SAT V 75.8 %; CORD GAS PCO2 V 44.4 mmHg; CORD GAS PH V 7.299 UNITS; CORD GAS PO2 V 32.6 mmHg; CORD GAS SBC V 19.8 MEQ/L; CORD GAS TCO2 V 22.7 MEQ/L
[2019-04-06 05:05] LABS: CORD GAS ABE A -5.9; CORD GAS HCO3 A 21.1 MEQ/L; CORD GAS O2 SAT A 56.6 %; CORD GAS PCO2 A 46.9 mmHg; CORD GAS PH A 7.27 UNITS; CORD GAS PO2 A 24.1 mmHg; CORD GAS SBC A 18.7 MEQ/L; CORD GAS TCO2 A 22.5 MEQ/L
[2019-04-06] MEDS: IBUPROFEN 800 MG TAB PO PRN ×2 (06:50→17:34)
[2019-04-06] MEDS: ACETAMINOPHEN 500 MG TAB PO PRN ×2 (06:50→18:29)
--- NOTE | 2019-04-06 08:22 | DN ---
DATE OF DELIVERY: 04/06/2019 PREDELIVERY DIAGNOSIS: 35 weeks 4 days gestation, trial of labor after , non-reassuring status secondary to biophysical profile 4 out of 8. POSTDELIVERY DIAGNOSIS: Delivered, vaginal after . PROCEDURE: Spontaneous vaginal delivery. PROVIDER: Kathy Lawrence DO, PGY-3 PLACEMENT SPECIALIST: Alysia Herman CNM ANESTHESIA: Epidural ESTIMATED BLOOD LOSS: 500 mL FINDINGS: Female weighing 2620 grams or 5 pounds 12 ounces, scores 9 and 9. DELIVERY SUMMARY: After a short second stage, the patient spontaneously delivered a 5 pound 12 ounce female infant, weighing 2620 grams, under epidural anesthesia at 0332 hours. The infant delivered left occiput anterior and restituted left occiput transduced. There was no nuchal cord. The shoulders delivered with ease, followed by the corpus. The infant cried spontaneously and was handed to the mother. scores were 9 and 9. The cord was doubly clamped and cut by the father of the baby. The placenta was delivered spontaneously at 0339 hours and appeared to be intact with what looks like a partial abruption along the edge. The patient received IV Pitocin immediately after delivery of placenta. The patient had a small perineal abrasion that was repaired with 3-0 Rapide in the usual fashion. Sponge, needle and instrument counts were correct. The placenta was sent to pathology and cord gases were collected. The parents have decided to name their child, Aspen Olmos Brooklynn.
[2019-04-06 08:42] LABS: HEMATOCRIT 24.8 % (36.0-47.0); HEMOGLOBIN 7.5 g/dl (12.0-15.5); MEAN CORPUSCULAR HEMOGLOBIN 24.4 pg (27.0-33.0); MEAN CORPUSCULAR HGB CONC 30.2 g/dl (32.0-36.5); MEAN CORPUSCULAR VOLUME 80.8 fl (80.0-96.0); PLATELET COUNT, AUTOMATED 179 10^3/uL (150-450); RED BLOOD COUNT 3.07 10^6/uL (4.00-5.40); WHITE BLOOD COUNT 22.2 10^3/uL (4.0-10.0)
[2019-04-06] MEDS: PRENATAL VITAMINS CHEWABLE TABLET PO SCH (09:00)
[2019-04-06] MEDS: DOCUSATE SODIUM 100 MG CAP PO SCH ×2 (09:09→21:45)
[2019-04-06] MEDS: FAMOTIDINE 20 MG TAB PO SCH ×2 (09:09→21:45)
[2019-04-06] MEDS: FERROUS GLUCONATE 324 MG TAB PO SCH ×3 (11:23→21:45)
[2019-04-07 02:07] VITALS: BP 101/51
[2019-04-07] MEDS: METHYLERGONOVINE MALEATE 0.2 MG TAB PO SCH (04:26)
[2019-04-07 06:26] VITALS: BP 106/51
[2019-04-07] MEDS: IBUPROFEN 800 MG TAB PO PRN (08:06)
[2019-04-07] MEDS: DOCUSATE SODIUM 100 MG CAP PO SCH ×2 (08:06→22:00)
[2019-04-07] MEDS: FAMOTIDINE 20 MG TAB PO SCH ×2 (08:07→22:00)
[2019-04-07] MEDS: PRENATAL VITAMINS CHEWABLE TABLET PO SCH (08:07)
[2019-04-07] MEDS: FERROUS GLUCONATE 324 MG TAB PO SCH ×3 (08:10→22:00)
[2019-04-07] MEDS ORDERED: METHYLERGONOVINE MALEATE 0.2 MG TAB PO PRN (09:00)
[2019-04-07 09:21] LABS: HEMATOCRIT 30.6 % (36.0-47.0); HEMOGLOBIN 9.3 g/dl (12.0-15.5); MEAN CORPUSCULAR HEMOGLOBIN 25.5 pg (27.0-33.0); MEAN CORPUSCULAR HGB CONC 30.4 g/dl (32.0-36.5); MEAN CORPUSCULAR VOLUME 84.1 fl (80.0-96.0); PLATELET COUNT, AUTOMATED 179 10^3/uL (150-450); RED BLOOD COUNT 3.64 10^6/uL (4.00-5.40); WHITE BLOOD COUNT 21.7 10^3/uL (4.0-10.0)
[2019-04-07 10:00] VITALS: BP 124/59
[2019-04-07 14:00] VITALS: BP 107/49
[2019-04-07 18:00] VITALS: BP 115/59
[2019-04-07] MEDS: ACETAMINOPHEN 500 MG TAB PO PRN (22:02)
[2019-04-08 06:00] VITALS: BP 97/50
[2019-04-08] MEDS: PRENATAL VITAMINS CHEWABLE TABLET PO SCH (08:26)
[2019-04-08] MEDS: DOCUSATE SODIUM 100 MG CAP PO SCH (08:27)
[2019-04-08] MEDS: IBUPROFEN 800 MG TAB PO PRN (08:28)
[2019-04-08] MEDS: FAMOTIDINE 20 MG TAB PO SCH (08:28)
[2019-04-08] MEDS ORDERED: ADACEL/BOOSTRIX VACCINE (DIPHTH/PERTUSS/ACELL/TETANUS)0.5ML SYR (90715) IM ONE (09:00)
[2019-04-08] MEDS ORDERED: IBUP80TA PO (10:13)
[2019-04-08] MEDS ORDERED: PRENCHW PO (10:13)
[2019-04-08] MEDS ORDERED: COLA100C5 PO (10:13)
[2019-04-08] MEDS ORDERED: FERR32TA PO (10:13)
[2019-04-08] MEDS ORDERED: ACET-683 PO (10:13)
== END 2019-04-08 11:30 | disposition home or self-care (01) | DRG 560 ==
LOC: M LDO 17:45 → M LDI 04-05 10:03 → M OBS 04-06 05:11
PROVIDERS: ADMIT Advanced Practice Midwife; ATTEND Advanced Practice Midwife
PROC: 3E033VJ Introduction of Other Hormone into Peripheral Vein, Percutaneous Approach (ICD-10-PCS; 2019-04-05)
PROC: 30233N1 Transfusion of Nonautologous Red Blood Cells into Peripheral Vein, Percutaneous Approach (ICD-10-PCS; 2019-04-05)
PROC: 10E0XZZ Delivery of Products of Conception, External Approach (ICD-10-PCS; principal; 2019-04-06)
DX: O99.03 Anemia complicating the puerperium (principal); D64.9 Anemia, unspecified; Z3A.35 35 weeks gestation of pregnancy; Z37.0 Single live birth; O34.219 Maternal care for unspecified type scar from previous cesarean delivery; O99.824 Streptococcus B carrier state complicating childbirth; O76 Abnormality in fetal heart rate and rhythm complicating labor and delivery

== ENCOUNTER 2019-07-28 01:52 | Emergency (ER) | payer OTHER ==
[~2019-07-28] VITALS: Ht 149.9 cm; Wt 71.8 kg
[~2019-07-28 01:52] MED LIST changes: +ACET-683 PO; +FERR32TA PO; +IBUP80TA PO; +PRENCHW PO
[2019-07-28 01:53] VITALS: BP 127/67
[2019-07-28 03:38] LABS: INFLUENZA A AMPLIFICATION NEGATIVE (NEGATIVE); INFLUENZA B AMPLIFICATION POSITIVE (NEGATIVE)
[2019-07-28] MEDS ORDERED: OSEL75CA PO (03:57)
[2019-07-28] MEDS ORDERED: OSELTAMIVIR PHOSPHATE 75 MG CAP (TAMIFLU) PO ONE (04:00)
== END 2019-07-28 04:31 | disposition home or self-care (01) ==
LOC: M ED 01:52
DX: J10.89 Influenza due to other identified influenza virus with other manifestations (principal)

== ENCOUNTER 2019-09-24 13:30 | Emergency (ER) | payer OTHER ==
[~2019-09-24] VITALS: Ht 152.4 cm; Wt 71.0 kg
[~2019-09-24 13:30] MED LIST changes: +OSEL75CA PO
--- NOTE | 2019-09-24 14:12 | REP ---
Right foot four views : There is no fracture or dislocation. Mineralization and joint spaces are normal. There are no calcifications or foreign bodies. Impression: Negative right foot . Electronically Signed by Chance Amador MD 09/24/2019 02:04 P
[2019-09-24 15:54] VITALS: BP 139/68
== END 2019-09-24 16:08 | disposition home or self-care (01) ==
LOC: M ED 13:30
DX: S99.921A Unspecified injury of right foot, initial encounter (principal); W22.09XA Striking against other stationary object, initial encounter; Y92.512 Supermarket, store or market as the place of occurrence of the external cause; Y93.01 Activity, walking, marching and hiking; F17.210 Nicotine dependence, cigarettes, uncomplicated

== ENCOUNTER 2019-12-24 19:18 | Emergency (ER) | payer OTHER ==
[~2019-12-24] VITALS: Ht 149.9 cm; Wt 75.3 kg
[2019-12-24 20:22] LABS: BASO % 0.2 % (0.0-1.0); EOS # 0.1 10^3/uL (0.0-0.5); EOS % 0.7 % (0.0-3.0); HEMATOCRIT 44.3 % (36.0-47.0); HEMOGLOBIN 15.2 g/dl (12.0-15.5); LYMPH % 29.9 % (24.0-44.0); MEAN CORPUSCULAR HEMOGLOBIN 30.1 pg (27.0-33.0); MEAN CORPUSCULAR HGB CONC 34.3 g/dl (32.0-36.5); MEAN CORPUSCULAR VOLUME 87.7 fl (80.0-96.0); MONO # 0.4 10^3/uL (0.0-0.8); MONO % 4.2 % (0.0-5.0); NEUTROPHILS # 6.4 10^3/uL (1.5-8.5); NEUTROPHILS % 64.8 % (36.0-66.0); PLATELET COUNT, AUTOMATED 306 10^3/uL (150-450); RED BLOOD COUNT 5.05 10^6/uL (4.00-5.40); WHITE BLOOD COUNT 9.9 10^3/uL (4.0-10.0)
[2019-12-24 20:59] LABS: ALBUMIN 4.8 GM/DL (3.2-5.2); ALT/SGPT 25 U/L (12-78); BILIRUBIN,TOTAL 0.4 MG/DL (0.2-1.0); BLOOD UREA NITROGEN 15 MG/DL (7-18); CALCIUM LEVEL 9.6 MG/DL (8.5-10.1); CARBON DIOXIDE LEVEL 25 MEQ/L (21-32); CHLORIDE LEVEL 107 MEQ/L (98-107); CREATININE FOR GFR 0.68 MG/DL (0.55-1.30); GLOMERULAR FILTRATION RATE > 60.0 (>60); GLUCOSE, FASTING 82 MG/DL (70-100); IRON (FE) 61 UG/DL (50-170); PERCENT SATURATION 16.1 % (13.2-45.0); SODIUM LEVEL 141 MEQ/L (136-145); TOTAL IRON BINDING CAPACITY 380 UG/DL (250-450)
[2019-12-24 21:00] VITALS: BP_DIAS 94
[2019-12-24 22:18] VITALS: BP_SYST 140
== END 2019-12-24 22:23 | disposition home or self-care (01) ==
LOC: M ED 19:18
DX: N93.8 Other specified abnormal uterine and vaginal bleeding (principal); F41.9 Anxiety disorder, unspecified; F32.9 Major depressive disorder, single episode, unspecified; J30.1 Allergic rhinitis due to pollen; F17.210 Nicotine dependence, cigarettes, uncomplicated

== ENCOUNTER 2020-07-02 11:51 | Emergency (ER) | payer OTHER ==
[~2020-07-02] VITALS: Ht 152.4 cm; Wt 77.7 kg
[2020-07-02] MEDS ORDERED: MELO7.5T35 (11:59)
[2020-07-02] MEDS ORDERED: NEXP1IMP SC (11:59)
[2020-07-02 13:48] LABS: BASO % 0.3 % (0.0-1.0); EOS % 0.6 % (0.0-3.0); HEMATOCRIT 42.1 % (36.0-47.0); HEMOGLOBIN 13.9 g/dl (12.0-15.5); LYMPH # 1.8 10^3/uL (1.5-5.0); LYMPH % 27.3 % (24.0-44.0); MEAN CORPUSCULAR HEMOGLOBIN 28.8 pg (27.0-33.0); MEAN CORPUSCULAR VOLUME 87.3 fl (80.0-96.0); MONO # 0.4 10^3/uL (0.0-0.8); MONO % 5.5 % (0.0-5.0); NEUTROPHILS # 4.4 10^3/uL (1.5-8.5); PLATELET COUNT, AUTOMATED 257 10^3/uL (150-450); RED BLOOD COUNT 4.82 10^6/uL (4.00-5.40); WHITE BLOOD COUNT 6.6 10^3/uL (4.0-10.0)
[2020-07-02 14:06] LABS: BLOOD UREA NITROGEN 18 MG/DL (7-18); CHLORIDE LEVEL 107 MEQ/L (98-107); CREATININE FOR GFR 0.65 MG/DL (0.55-1.30); GLOMERULAR FILTRATION RATE > 60.0 (>60); GLUCOSE, FASTING 91 MG/DL (70-100); POTASSIUM SERUM 4.1 MEQ/L (3.5-5.1); SODIUM LEVEL 138 MEQ/L (136-145)
[2020-07-02 14:07] LABS: C REACTIVE PROTEIN QUANTITATIV 1.78 MG/DL (0.00-0.30); CALCIUM LEVEL 9.3 MG/DL (8.5-10.1); CARBON DIOXIDE LEVEL 26 MEQ/L (21-32)
[2020-07-02 14:10] LABS: HCG, SERUM QUALITATIVE NEGATIVE (NEGATIVE)
[2020-07-02 14:15] LABS: ERYTHROCYTE SEDIMENTATION RATE 5 mm/hr (0-20)
[2020-07-02] MEDS ORDERED: diazePAM 5 MG TAB PO ONE (14:15)
[2020-07-02] MEDS ORDERED: ACETAMINOPHEN 500 MG TAB PO ONE (14:15)
[2020-07-02] MEDS ORDERED: LIDOCAINE 5% (LIDODERM) PATCH TD ONE (14:15)
--- NOTE | 2020-07-02 14:39 | REP ---
INDICATION: severe low back pain, left hip pain. COMPARISON: None. TECHNIQUE: Helical scanning is acquired. 4 mm axial images are generated. Coronal and sagittal MPR images are generated and reviewed. FINDINGS: There is a levoconvex lumbar curvature. Lumbar vertebral body heights are preserved. No fracture or collapse is seen. No bony destructive lesion is seen. There is no evidence of spondylolysis or spondylolisthesis. Sacrum and SI joints are intact. There is no evidence of lumbar disc protrusion. No prevertebral or extra-spinal soft tissue disease is seen. IMPRESSION: Mild levoconvex curvature question splinting versus coli oasis. Otherwise negative. No acute bony abnormality. <Electronically signed by Andrew Meyer > 07/02/20 [id number]
[2020-07-02 16:10] VITALS: BP 156/80
--- NOTE | 2020-07-02 16:15 | REP ---
INDICATION: severe low back pain, left hip pain. COMPARISON: None. TECHNIQUE: Helical scanning is acquired. 3 mm axial images are generated. Coronal and sagittal MPR images are generated. FINDINGS: Digital forensic materials engineer radiograph is unremarkable. The patient's pelvis is rotated somewhat to the right. The left hip is normally aligned. There is no evidence of traumatic fracture or stress fracture the left proximal femur. The left hemipelvis appears intact as visualized. Head neck junction morphology is normal. Periarticular soft tissues are unremarkable. IMPRESSION: Unremarkable CT study of the left hip. <Electronically signed by Andrew Meyer > 07/02/20 [id number]
[2020-07-02] MEDS ORDERED: **NOTE PATIENT COMMENT** MISC XX SCH (21:00)
== END 2020-07-02 16:28 | disposition home or self-care (01) ==
LOC: M ED 11:51
DX: M25.552 Pain in left hip (principal); M54.5 Low back pain; G89.29 Other chronic pain; Z87.39 Personal history of other diseases of the musculoskeletal system and connective tissue

== ENCOUNTER → 2020-09-22 | Outpatient (CLI) | payer OTHER ==
[~2020-09-22] MED LIST changes: +MELO7.5T35; +NEXP1IMP SC
[2020-09-22 16:14] LABS: BASO % 0.3 % (0.0-1.0); EOS % 0.2 % (0.0-3.0); HEMATOCRIT 39.2 % (36.0-47.0); HEMOGLOBIN 12.8 g/dl (12.0-15.5); LYMPH # 2.9 10^3/uL (1.5-5.0); LYMPH % 31.1 % (24.0-44.0); MEAN CORPUSCULAR HEMOGLOBIN 28.9 pg (27.0-33.0); MEAN CORPUSCULAR HGB CONC 32.7 g/dl (32.0-36.5); MEAN CORPUSCULAR VOLUME 88.5 fl (80.0-96.0); MONO # 0.5 10^3/uL (0.0-0.8); MONO % 4.8 % (2.0-8.0); NEUTROPHILS # 5.9 10^3/uL (1.5-8.5); NEUTROPHILS % 63.3 % (36.0-66.0); PLATELET COUNT, AUTOMATED 305 10^3/uL (150-450); RED BLOOD COUNT 4.43 10^6/uL (4.00-5.40); WHITE BLOOD COUNT 9.4 10^3/uL (4.0-10.0)
[2020-09-22 17:11] LABS: ERYTHROCYTE SEDIMENTATION RATE 4 mm/hr (0-20)
== END ==
LOC: M LAB 15:34
PROVIDERS: ATTEND Physician Assistant
DX: M21.70 Unequal limb length (acquired), unspecified site (principal)

== ENCOUNTER → 2020-10-23 | Outpatient (REF) | payer OTHER ==
[2020-10-23 19:35] LABS: BASO % 0.5 % (0.0-1.0); EOS % 0.5 % (0.0-3.0); HEMATOCRIT 43.2 % (36.0-47.0); HEMOGLOBIN 14.6 g/dl (12.0-15.5); LYMPH % 26.2 % (24.0-44.0); MEAN CORPUSCULAR HEMOGLOBIN 29.4 pg (27.0-33.0); MEAN CORPUSCULAR HGB CONC 33.8 g/dl (32.0-36.5); MEAN CORPUSCULAR VOLUME 86.9 fl (80.0-96.0); MONO # 0.4 10^3/uL (0.0-0.8); MONO % 5.5 % (2.0-8.0); NEUTROPHILS # 5.2 10^3/uL (1.5-8.5); NEUTROPHILS % 67.2 % (36.0-66.0); PLATELET COUNT, AUTOMATED 303 10^3/uL (150-450); RED BLOOD COUNT 4.97 10^6/uL (4.00-5.40); WHITE BLOOD COUNT 7.8 10^3/uL (4.0-10.0)
[2020-10-23 19:54] LABS: HEMOGLOBIN A1c 4.8 %
[2020-10-23 19:55] LABS: ALBUMIN 4.2 GM/DL (3.2-5.2); ALT/SGPT 21 U/L (12-78); BILIRUBIN,TOTAL 0.4 MG/DL (0.2-1.0); BLOOD UREA NITROGEN 20 MG/DL (7-18); CALCIUM LEVEL 9.6 MG/DL (8.5-10.1); CARBON DIOXIDE LEVEL 29 MEQ/L (21-32); CHLORIDE LEVEL 106 MEQ/L (98-107); CHOLESTEROL LEVEL 114 MG/DL (<200); CREATININE FOR GFR 0.67 MG/DL (0.55-1.30); FERRITIN 13 NG/ML (8-252); GLOMERULAR FILTRATION RATE > 60.0 (>60); GLUCOSE, FASTING 88 MG/DL (70-100); HDL CHOLESTEROL 50 MG/DL (>40); IRON (FE) 117 UG/DL (50-170); LDL CHOLESTEROL 47 MG/DL (<100); NON-HDL-C 64 MG/DL; PERCENT SATURATION 34.7 % (13.2-45.0); SODIUM LEVEL 139 MEQ/L (136-145); TOTAL IRON BINDING CAPACITY 337 UG/DL (250-450); TOTAL PROTEIN 7.3 GM/DL (6.4-8.2); TRIGLYCERIDES LEVEL 87 MG/DL (<150)
[2020-10-23 19:57] LABS: TOTAL 25(OH) VITAMIN D 15.4 NG/ML (30.0-100.0)
[2020-10-23 20:26] LABS: CA 125 7.5 U/ML (<30.2)
== END ==
LOC: M LAB REF 18:46
PROVIDERS: ATTEND Pediatrics
DX: R19.00 Intra-abdominal and pelvic swelling, mass and lump, unspecified site (principal); Z13.220 Encounter for screening for lipoid disorders; Z13.228 Encounter for screening for other metabolic disorders; E55.9 Vitamin D deficiency, unspecified; Z86.2 Personal history of diseases of the blood and blood-forming organs and certain disorders involving the immune mechanism

== ENCOUNTER 2021-01-14 09:21 | Emergency (ER) | payer OTHER ==
[~2021-01-14] VITALS: Ht 152.4 cm; Wt 77.5 kg
[2021-01-14] MEDS ORDERED: GABA-1171 (09:29)
[2021-01-14] MEDS ORDERED: D 202000 (09:29)
[2021-01-14] MEDS ORDERED: KETOROLAC 30 MG/ML 1ML VIAL IM ONE (09:50)
[2021-01-14] MEDS ORDERED: ALBUTEROL SULFATE 2.5 MG/0.5 ML INH NEB SOLN NEB ONE (10:05)
--- NOTE | 2021-01-14 10:17 | REP ---
INDICATION: cough/cp COMPARISON: None. TECHNIQUE: PA and lateral. FINDINGS: The mediastinum and cardiac silhouette are normal. The lung barron are clear and without acute consolidation, effusion, or pneumothorax. The skeletal structures are intact and normal. IMPRESSION: No acute cardiopulmonary process. <Electronically signed by Joseph Nunez > 01/14/21 [id number]
--- NOTE | 2021-01-14 10:19 | REP ---
INDICATION: cough/cp. COMPARISON: None. TECHNIQUE: AP and lateral soft tissue neck radiographs (3 total views) FINDINGS: Airways patent, midline and normal. Surrounding soft tissues are unremarkable. Skeletal structures are intact and age-appropriate. IMPRESSION: Normal soft tissue neck radiographs. <Electronically signed by Joseph Nunez > 01/14/21 [id number]
[2021-01-14] MEDS ORDERED: ISOVUE-370 76% 100ML VIAL As Ordered ONE (10:44)
--- NOTE | 2021-01-14 11:24 | REP ---
INDICATION: CP/elevated d-dimer COMPARISON: None. TECHNIQUE: Axial contrast enhanced images from the thoracic inlet to the upper abdomen using pulmonary embolus technique with multiplanar re-formations. 75 ml Isovue 370 intravenous contrast material administered without complication. This CT examination was performed using the following dose reduction techniques: Automated exposure control, adjustment of mA and/or kv according to the patient's size, and use of iterative reconstruction technique. FINDINGS: Satisfactory enhancement of the pulmonary vasculature is achieved and no filling defects are identified to suggest pulmonary embolus. Further evaluation of the mediastinum demonstrates normal thoracic aorta, heart and pericardium. The bilateral lung barron are well aerated and clear without consolidation pleural effusion or pneumothorax. Tracheobronchial tree is patent. No nodule or mass lesion is identified. No adenopathy noted. Surrounding musculoskeletal structures intact IMPRESSION: No evidence for pulmonary embolus. No acute mediastinal or pleural parenchymal process. <Electronically signed by Joseph Nunez > 01/14/21 [id number]
[2021-01-14] MEDS ORDERED: PROV108A INH (11:59)
[2021-01-14 12:05] VITALS: BP 146/67
[2021-01-14] MEDS ORDERED: KETO10TAB PO (12:08)
--- NOTE | 2021-01-14 21:22 | ECGEPIP ---
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
== END 2021-01-14 12:11 | disposition home or self-care (01) ==
LOC: M ED 09:21
DX: J40 Bronchitis, not specified as acute or chronic (principal); J30.2 Other seasonal allergic rhinitis; Z86.16 Personal history of COVID-19
CPT/HCPCS: 70360; 71046; 71275; 84702; 85379; 93005; 94640; 96372; 99284; J1885; Q9967

== ENCOUNTER → 2021-08-30 | Outpatient (CLI) | payer OTHER ==
[~2021-08-30] MED LIST changes: +GABA-1171; +KETO10TAB PO; +PROV108A INH; +TRAZ-257 PO; +VITA200032
== END ==
LOC: M LABSMTC 11:03
PROVIDERS: ATTEND Anesthesiology
DX: Z01.818 Encounter for other preprocedural examination (principal); Z11.52 Encounter for screening for COVID-19

== ENCOUNTER 2021-09-03 10:39 | Day surgery (SDC) | payer OTHER ==
[~2021-09-03] VITALS: Ht 152.4 cm; Wt 78.8 kg
[~2021-09-03 10:39] MED LIST changes: +ACETAMINOPHEN 1000MG 100ML IV BTL (OFIRMEV) (J0131 PER 10MG) As Ordered ONE; +BUPIVACAINE HCL 0.25% 10ML VIAL As Ordered ONE; +KETOROLAC 60MG 2ML VIAL As Ordered ONE; +LIDOCAINE 2% 100MG/5ML SDV (FOR ANES.) As Ordered ONE; +LR 1,000 ML IV ONE; +MIDAZOLAM INJ 2MG/2ML VIAL (J2250 PER 1MG) As Ordered ONE; +ONDANSETRON 4MG/2ML VIAL As Ordered ONE; +ROCURONIUM BROMIDE 50 MG/5 ML VIAL As Ordered ONE; +SUGAMMADEX SODIUM 500 MG/5 ML VIAL (BRIDION) As Ordered ONE; +dexameTHASONE 4 MG/ML 1ML VIAL (J1100 PER 1MG) As Ordered ONE; +fentaNYL 100 MCG/2 ML INJECTION As Ordered ONE; +propofoL 200 MG/20 ML VIAL As Ordered ONE
[2021-09-03 11:06] LABS: HEMATOCRIT 41.9 % (36.0-47.0); HEMOGLOBIN 14.1 g/dl (12.0-15.5); MEAN CORPUSCULAR HEMOGLOBIN 29.1 pg (27.0-33.0); MEAN CORPUSCULAR HGB CONC 33.7 g/dl (32.0-36.5); MEAN CORPUSCULAR VOLUME 86.6 fl (80.0-96.0); PLATELET COUNT, AUTOMATED 289 10^3/uL (150-450); RED BLOOD COUNT 4.84 10^6/uL (4.00-5.40); WHITE BLOOD COUNT 7.9 10^3/uL (4.0-10.0)
[2021-09-03] MEDS ORDERED: OXYC1TAB23 PO (12:12)
[2021-09-03] MEDS ORDERED: IBUP-1022 PO (12:13)
[2021-09-03] MEDS ORDERED: LR 1,000 ML IV SCH ×2 (13:25→13:30)
[2021-09-03] MEDS ORDERED: METOCLOPRAMIDE INJ 10MG/2ML VIAL (J2765 PER 1) IV PRN (13:25)
[2021-09-03] MEDS ORDERED: PERCOCET 5MG/325MG TAB PO PRN ×2 (13:25→13:30)
[2021-09-03] MEDS ORDERED: ONDANSETRON 4MG/2ML VIAL IV PRN (13:25)
[2021-09-03] MEDS ORDERED: fentaNYL 100 MCG/2 ML INJECTION IV PRN (13:25)
[2021-09-03 14:52] VITALS: BP 152/84
== END 2021-09-03 15:00 | disposition home or self-care (01) ==
LOC: M SDC 10:39
PROVIDERS: ATTEND Specialist
DX: Z30.2 Encounter for sterilization (principal); Z30.46 Encounter for surveillance of implantable subdermal contraceptive; F32.A Depression, unspecified; F41.9 Anxiety disorder, unspecified; F43.10 Post-traumatic stress disorder, unspecified; J30.2 Other seasonal allergic rhinitis; R12 Heartburn; Z86.16 Personal history of COVID-19; Z87.891 Personal history of nicotine dependence
CPT/HCPCS: 11982; 36415; 58661; 81025; 85027; 88302; J0131; J1100; J1885; J2250; J2405; J3010

== ENCOUNTER → 2022-01-03 | Outpatient (CLI) | payer OTHER ==
[~2022-01-03] MED LIST changes: -ACETAMINOPHEN 1000MG 100ML IV BTL (OFIRMEV) (J0131 PER 10MG) As Ordered ONE; -BUPIVACAINE HCL 0.25% 10ML VIAL As Ordered ONE; -KETOROLAC 60MG 2ML VIAL As Ordered ONE; -LIDOCAINE 2% 100MG/5ML SDV (FOR ANES.) As Ordered ONE; -LR 1,000 ML IV ONE; -MIDAZOLAM INJ 2MG/2ML VIAL (J2250 PER 1MG) As Ordered ONE; -ONDANSETRON 4MG/2ML VIAL As Ordered ONE; -ROCURONIUM BROMIDE 50 MG/5 ML VIAL As Ordered ONE; -SUGAMMADEX SODIUM 500 MG/5 ML VIAL (BRIDION) As Ordered ONE; -dexameTHASONE 4 MG/ML 1ML VIAL (J1100 PER 1MG) As Ordered ONE; -fentaNYL 100 MCG/2 ML INJECTION As Ordered ONE; -propofoL 200 MG/20 ML VIAL As Ordered ONE
== END ==
LOC: M WUC 13:23
PROVIDERS: ATTEND Physician Assistant
DX: M79.671 Pain in right foot (principal)

== ENCOUNTER 2022-06-28 07:27 | Emergency (ER) | payer OTHER ==
[~2022-06-28] VITALS: Ht 152.4 cm; Wt 82.6 kg
[~2022-06-28 07:27] MED LIST changes: +ALBU6.7H6 INH; +ETON68IM SC; -NEXP1IMP SC; -PROV108A INH
[2022-06-28 07:28] VITALS: BP 132/76
[2022-06-28] MEDS ORDERED: SUMA100T2 (07:46)
[2022-06-28] MEDS ORDERED: HYDR-3363 (07:46)
[2022-06-28] MEDS ORDERED: GABA-282 (07:46)
[2022-06-28] MEDS ORDERED: CETI-24 (07:46)
== END 2022-06-28 12:05 | disposition left against medical advice (07) ==
LOC: M ED 08:27
DX: Z53.21 Procedure and treatment not carried out due to patient leaving prior to being seen by health care provider (principal)

== ENCOUNTER 2022-09-02 07:17 | Emergency (ER) | payer OTHER ==
[~2022-09-02] VITALS: Ht 152.4 cm; Wt 83.5 kg
[~2022-09-02 07:17] MED LIST changes: +CETI-24; +GABA-282; +HYDR-3363; +SUMA100T2
[2022-09-02] MEDS: ACETAMINOPHEN TAB 650MG DOSE (2X325MG) PO ONE (08:03)
[2022-09-02] MEDS: ONDANSETRON 4MG ORAL DISINTEGRATING TAB PO ONE (08:03)
[2022-09-02] MEDS ORDERED: ONDA4TAB6 PO (08:59)
[2022-09-02 09:18] VITALS: BP 118/55
== END 2022-09-02 09:26 | disposition home or self-care (01) ==
LOC: M ED 07:17
DX: B34.9 Viral infection, unspecified (principal); R11.0 Nausea; R50.9 Fever, unspecified; F41.9 Anxiety disorder, unspecified; F32.A Depression, unspecified; F17.200 Nicotine dependence, unspecified, uncomplicated; Z91.048 Other nonmedicinal substance allergy status; Z79.899 Other long term (current) drug therapy; Z87.09 Personal history of other diseases of the respiratory system; Z86.2 Personal history of diseases of the blood and blood-forming organs and certain disorders involving the immune mechanism; Z98.890 Other specified postprocedural states

== ENCOUNTER → 2023-01-02 | Outpatient (CLI) | payer OTHER ==
[~2023-01-02] MED LIST changes: +ONDA4TAB6 PO
[2023-01-02 15:56] LABS: BASO % 0.3 % (0.0-1.0); EOS # 0.1 10^3/uL (0.0-0.5); EOS % 0.9 % (0.0-3.0); HEMATOCRIT 40.1 % (36.0-47.0); HEMOGLOBIN 13.8 g/dl (12.0-15.5); LYMPH % 22.4 % (24.0-44.0); MEAN CORPUSCULAR HEMOGLOBIN 30.4 pg (27.0-33.0); MEAN CORPUSCULAR HGB CONC 34.4 g/dl (32.0-36.5); MEAN CORPUSCULAR VOLUME 88.3 fl (80.0-96.0); MONO # 0.4 10^3/uL (0.0-0.8); MONO % 4.1 % (2.0-8.0); NEUTROPHILS # 6.5 10^3/uL (1.5-8.5); NEUTROPHILS % 72.1 % (36.0-66.0); PLATELET COUNT, AUTOMATED 321 10^3/uL (150-450); RED BLOOD COUNT 4.54 10^6/uL (4.00-5.40)
[2023-01-02 16:13] LABS: ALBUMIN 3.7 G/DL (3.2-5.2); ALKALINE PHOSPHATASE 62 U/L (46-116); ALT/SGPT 19 U/L (7.0-40); AST/SGOT 12 U/L (<34); BILIRUBIN,TOTAL 0.3 MG/DL (0.3-1.2); BLOOD UREA NITROGEN 14 MG/DL (9-23); CALCIUM LEVEL 8.5 MG/DL (8.5-10.1); CARBON DIOXIDE LEVEL 27 MMOL/L (20-31); CHLORIDE LEVEL 105 MMOL/L (98-107); CREATININE FOR GFR 0.67 MG/DL (0.55-1.30); GLOMERULAR FILTRATION RATE > 60.0 (>60); GLUCOSE, FASTING 115 MG/DL (60-100); POTASSIUM SERUM 3.8 MMOL/L (3.5-5.1); RHEUMATOID FACTOR QUANT < 3.5 IU/ML (<14); SODIUM LEVEL 138 MMOL/L (136-145); TOTAL PROTEIN 6.5 G/DL (5.7-8.2)
[2023-01-02 16:14] LABS: THYROID STIMULATING HORMONE 2.379 uIU/ML (0.55-4.78); TOTAL 25(OH) VITAMIN D 32.4 NG/ML (20.0-100.0)
[2023-01-02 16:18] LABS: ERYTHROCYTE SEDIMENTATION RATE 1 mm/hr (0-20)
[2023-01-04 13:09] LABS: ANTINUCLEAR ANTIBODIES DIRECT Negative (Negative)
== END ==
LOC: M LAB 15:18
PROVIDERS: ATTEND Psychiatry & Neurology Neurology
DX: R51.9 Headache, unspecified (principal)

== ENCOUNTER → 2023-01-20 | Outpatient (CLI) | payer OTHER | LOC: M WUC 09:46 | PROVIDERS: ATTEND Nurse Practitioner Family | DX: M25.562 Pain in left knee (principal) ==

== ENCOUNTER → 2023-08-15 | Outpatient (CLI) | payer OTHER | LOC: M SLEEP 20:00 | PROVIDERS: ATTEND Nurse Practitioner Family | DX: G47.33 Obstructive sleep apnea (adult) (pediatric) (principal) ==

== ENCOUNTER → 2023-09-12 | Outpatient (CLI) | payer OTHER ==
[~2023-09-12] MED LIST changes: +METHACHOLINE KIT INH ONE
== END ==
LOC: M CARPUL 13:57
PROVIDERS: ATTEND Nurse Practitioner Family
DX: R06.02 Shortness of breath (principal)
CPT/HCPCS: 94070; 95070; J7674

== ENCOUNTER → 2023-10-16 | Outpatient (CLI) | payer OTHER ==
[~2023-10-16] MED LIST changes: -METHACHOLINE KIT INH ONE
== END ==
LOC: M RAD 12:55
PROVIDERS: ATTEND Nurse Practitioner Family
DX: R06.02 Shortness of breath (principal)

== ENCOUNTER → 2023-11-30 | Outpatient (REF) | payer OTHER | LOC: M LAB REF 10:07 | PROVIDERS: ATTEND Student in an Organized Health Care Education/Training Program | DX: R30.0 Dysuria (principal) ==

== ENCOUNTER → 2024-01-31 | Outpatient (CLI) | payer OTHER ==
[~2024-01-31] MED LIST changes: +ONDA-282 PO; -ONDA4TAB6 PO
== END ==
LOC: M WUC 12:59
PROVIDERS: ATTEND Student in an Organized Health Care Education/Training Program
DX: M25.572 Pain in left ankle and joints of left foot (principal); R22.42 Localized swelling, mass and lump, left lower limb